=== PATIENT | female | born 1960 | race Caucasian/White ===

== ENCOUNTER → 2016-10-22 | Outpatient (CLI) | payer OTHER ==
[~2016-10-22] MED LIST: ASPI-99 PO; LEVO-86 PO; METO25TA3 PO; PRAV40TA PO; SYNT25TA PO; ULTR50TA PO
[2016-10-22 09:38] LABS: BASOPHIL % 0.6 % (0.0-2.0); EOSINOPHIL # 0.3 TH/MM3 (0-0.4); EOSINOPHIL % 3.9 % (0.0-4.0); HEMO FLAGS DIFF FINAL; LYMPH % 25.6 % (9.0-44.0); MEAN CELL VOLUME 82.1 FL (80.0-100.0); MEAN CORPUSCULAR HEMOGLOBIN 26.5 PG (27.0-34.0); MEAN CORPUSCULAR HGB CONC 32.3 % (32.0-36.0); NEUT % 62.9 % (16.0-70.0); PLATELET COUNT 216 TH/MM3 (150-450); RED BLOOD COUNT 4.99 MIL/MM3 (4.00-5.30); RED CELL DISTRIBUTION WIDTH 14.9 % (11.6-17.2); WHITE BLOOD COUNT 7.9 TH/MM3 (4.0-11.0)
[2016-10-22 10:12] LABS: ALT (GPT) 21 U/L (10-53); ANION GAP 5 MEQ/L (5-15); AST (GOT) 15 U/L (15-37); BICARBONATE 30.5 MEQ/L (21.0-32.0); BLOOD UREA NITROGEN 14 MG/DL (7-18); CHLORIDE 105 MEQ/L (98-107); GLOMERULAR FILTRATION RATE 68 ML/MIN (>89); GLUCOSE,FASTING 88 MG/DL (74-99); POTASSIUM 4.5 MEQ/L (3.5-5.1); SODIUM (NA) 140 MEQ/L (136-145)
[2016-10-22 10:22] LABS: ALKALINE PHOSPHATASE 115 U/L (45-117); LDL CHOLESTEROL 91 MG/DL (0-99); TOTAL BILIRUBIN ADULT 0.5 MG/DL (0.2-1.0)
== END ==
LOC: PLAB 07:14
PROVIDERS: ATTEND Family Medicine
DX: E03.8 Other specified hypothyroidism (principal); D50.0 Iron deficiency anemia secondary to blood loss (chronic)
CPT/HCPCS: 80053; 80061; 84443; 85025

== ENCOUNTER 2017-02-22 22:43 | Observation (INO) | payer OTHER ==
[~2017-02-22] VITALS: Ht 167.6 cm; Wt 96.5 kg
[~2017-02-22 22:43] MED LIST changes: -ASPI-99 PO; -LEVO-86 PO; -METO25TA3 PO; -PRAV40TA PO
[2017-02-22 22:46] VITALS: BP 157/68; PULSE 79; RESP 16; TEMP 98; O2SAT 97
[2017-02-22] MEDS ORDERED: LEVO-86 PO (23:27)
--- NOTE | 2017-02-22 23:27 | PD ---
HPI Chief Complaint: Chest Pain Time Seen by Provider: 23:27 Travel History International Travel<30 days: No Contact w/Intl Traveler<30days: No Traveled to known affect area: No History of Present Illness HPI 56-year-old female came to the emergency room with history of left sided chest pain radiating to her axilla at 9 PM while she was sitting and watching television. Since then pain came and went multiple times and finally her decided to bring her to the emergency room. Her is a nurse in this hospital and was concerned about her heart. Currently patient says she is chest pain-free. Patient is not a smoker and has a very strong family history of coronary artery disease. Both her parents and all her siblings have had stents put in. Patient has never had any cardiac workup in the past. She is not on any medications on a daily basis either. Vital signs were stable. No long distance travel, surgery or procedures or any prolonged immobilization. PFSH Past Medical History Narrative Medical List of her past medical, surgical, social and family history was reviewed from the nursing note. Arthritis: No Asthma: No Autoimmune Disease: No Blood Disorders: No Anxiety: No Depression: No Heart Rhythm Problems: No Cancer: No Cardiovascular Problems: No High Cholesterol: No Chemotherapy: No Chest Pain: No Congestive Heart Failure: No COPD: No Cerebrovascular Accident: No Diabetes: No Diminished Hearing: No Endocrine: Yes GERD: No Glaucoma: No Genitourinary: No Headaches: No Hepatitis: No Hiatal Hernia: No Hypertension: No Immune Disorder: No Kidney Stones: No Musculoskeletal: No Neurologic: No Psychiatric: No Reproductive: Yes (HEMORRHAGE AFTER CHILD ) Respiratory: No Migraines: No Myocardial Infarction: No Radiation Therapy: No Renal Failure: No Seizures: No Sickle Cell Disease: No Sleep Apnea: No Thyroid Disease: Yes (HYPOTHYROID) Ulcer: No Tetanus Vaccination: Unknown ?: Not Dilation and Curettage (D&C): Yes Tubal Ligation: Yes Past Surgical History Abdominal Surgery: No AICD: No Appendectomy: No Arteriovenous Shunt: No Cardiac Surgery: No Cholecystectomy: No Ear Surgery: No Endocrine Surgery: No Eye Surgery: No Genitourinary Surgery: No Gynecologic Surgery: Yes (D/C and uterine ablation) Insulin Pump: No Joint Replacement: No Oral Surgery: No Pacemaker: No Thoracic Surgery: No Other Surgery: Yes Social History Alcohol Use: No Tobacco Use: No Substance Use: No Allergies-Medications (Allergen,Severity, Reaction): Coded Allergies: No Known Allergies (Verified , 02/22/17) Comments No known drug allergies. Reported Meds & Prescriptions Reported Meds & Active Scripts Active Reported Synthroid (Levothyroxine Sodium) 137 Mcg Tab 137 Mcg PO DAILY Narrative Medication List of her home medications reviewed from the nursing note. Review of Systems Except as stated in HPI: all other systems reviewed are Neg Physical Exam Narrative GENERAL: Awake, alert, no obvious distress SKIN: Focused skin assessment warm/dry. HEAD: Atraumatic. Normocephalic. EYES: Pupils equal and round. No scleral icterus. No injection or drainage. ENT: No nasal bleeding or discharge. Mucous membranes pink and moist. NECK: Trachea midline. No JVD. CARDIOVASCULAR: Regular rate and rhythm. No murmur appreciated. RESPIRATORY: No accessory muscle use. Clear to auscultation. Breath sounds equal bilaterally. GASTROINTESTINAL: Abdomen soft, non-tender, nondistended. Hepatic and splenic margins not palpable. MUSCULOSKELETAL: No obvious deformities. No clubbing. No cyanosis. No edema. NEUROLOGICAL: Awake and alert. No obvious cranial nerve deficits. Motor grossly within normal limits. Normal speech. PSYCHIATRIC: Appropriate mood and affect; insight and judgment normal. Data Data Last Documented VS Orders Electrocardiogram (02/22/17 23:27) Basic Metabolic Panel (Bmp) (02/22/17 23:27) Ckmb (Isoenzyme) Profile (02/22/17 23:27) Complete Blood Count With Diff (02/22/17 23:27) Magnesium (Mg) (02/22/17 23:27) Prothrombin Time / Inr (Pt) (02/22/17 23:27) Act Partial Throm Time (Ptt) (02/22/17 23:27) Troponin I (02/22/17 23:27) Chest, Single Ap (02/22/17 23:27) Ecg Monitoring (02/22/17 23:27) Bilateral Bp Monitoring (02/22/17 23:27) Iv Access Insert/Monitor (02/22/17 23:27) Oximetry (02/22/17 23:27) Oxygen Administration (02/22/17 23:27) Sodium Chloride 0.9% Flush (Ns Flush) (02/22/17 23:30) Aspirin Chew (Aspirin Chew) (02/23/17 09:00) Aspirin Chew (Aspirin Chew) (02/23/17 00:00) Admit Order (Ed Use Only) (02/23/17 01:21) Labs Laboratory Tests Test 02/22/17 23:40 White Blood Count 13.5 TH/MM3 Red Blood Count 4.78 MIL/MM3 Hemoglobin 12.7 GM/DL Hematocrit 38.1 % Mean Corpuscular Volume 79.7 FL Mean Corpuscular Hemoglobin 26.5 PG Mean Corpuscular Hemoglobin 33.2 % Concent Red Cell Distribution Width 15.6 % Platelet Count 225 TH/MM3 Mean Platelet Volume 8.5 FL Neutrophils (%) (Auto) 60.5 % Lymphocytes (%) (Auto) 28.7 % Monocytes (%) (Auto) 8.0 % Eosinophils (%) (Auto) 2.2 % Basophils (%) (Auto) 0.6 % Neutrophils # (Auto) 8.2 TH/MM3 Lymphocytes # (Auto) 3.9 TH/MM3 Monocytes # (Auto) 1.1 TH/MM3 Eosinophils # (Auto) 0.3 TH/MM3 Basophils # (Auto) 0.1 TH/MM3 CBC Comment DIFF FINAL Differential Comment Prothrombin Time 10.7 SEC Prothromb Time International 1.0 RATIO Ratio Activated Partial 29.0 SEC Thromboplast Time Sodium Level 140 MEQ/L Potassium Level 3.8 MEQ/L Chloride Level 104 MEQ/L Carbon Dioxide Level 30.7 MEQ/L Anion Gap 5 MEQ/L Blood Urea Nitrogen 24 MG/DL Creatinine 0.92 MG/DL Estimat Glomerular Filtration 64 ML/MIN Rate Random Glucose 102 MG/DL Calcium Level 8.5 MG/DL Magnesium Level 2.5 MG/DL Total Creatine Kinase 39 U/L Troponin I LESS THAN 0.02 NG/ML MDM Medical Decision Making Medical Screen Exam Complete: Yes Emergency Medical Condition: Yes Medical Record Reviewed: Yes Interpretation(s) Twelve-lead EKG was reviewed by me. Normal sinus rhythm, normal axis, inverted anterior lateral T waves. Heart rate of 76 bpm. Differential Diagnosis Coronary artery disease, ACS, non-STEMI Narrative Course 1 AM patient has some leukocytosis but rest of the blood work is within normal limits. Chest x-ray shows cardiomegaly. Patient has significant dress factor in the form of family history. Also the EKG shows the T wave inversions which does not have any comparison EKG. I would prefer to admit her to the medical service. Awaiting for the hospitalist call back. Procedures EKG Prior to Arrival: No Diagnosis Primary Impression: Chest pain Qualified Code: R07.9 - Chest pain, unspecified type Additional Impression: Abnormal EKG Admitting Information Admitting Physician Requests: Observation Scripts Metoprolol Tartrate 25 Mg Tab12.5 Mg PO Q12HR #60 TAB Ref 0 Prov:Deyvi Ramey MD 02/24/[address] (Adult Aspirin EC Low Strength)81 Mg Tabec81 Mg PO DAILY #30 TAB Ref 0 Prov:Deyvi Ramey MD 02/24/17 Jake Wells MD Feb 22, 2017 23:27 Jake Wells MD Feb 22, 2017 23:27
[2017-02-22 23:29] VITALS: PULSE 74; RESP 16; O2SAT 96
[2017-02-22] MEDS ORDERED: SODIUM CHLORIDE 0.9% FLUSH 10 ML FLUSH IVF PRN (23:30)
--- NOTE | 2017-02-22 23:51 | RADRPT ---
EXAM DATE/TIME: 02/22/2017 23:41 [facility] COMPARISON: No previous studies available for comparison. INDICATIONS : Chest pain MEDICAL HISTORY : None. SURGICAL HISTORY : None. ENCOUNTER: Initial ACUITY: 1 day PAIN SCORE: 2/10 LOCATION: Bilateral chest FINDINGS: A single view of the chest demonstrates the lungs to be symmetrically aerated without evidence of mas s, infiltrate or effusion. Cardiomegaly. The cardiomediastinal contours are unremarkable. Osseous s tructures are intact. CONCLUSION: Cardiomegaly. Aries Ayala MD on February 22, 2017 at 23:48 Board Certified Radiologist. This report was verified electronically.
[2017-02-23] VITALS (16 sets, daily range): BP systolic 102–139; BP diastolic 54–81; PULSE 61–80; RESP 18–20; TEMP 96.8–98.3; O2SAT 96–97
[2017-02-23] MEDS ORDERED: ASPIRIN 81 MG CHEW TAB CHEW ONE
[2017-02-23 00:14] LABS: PROTHROMBIN TIME - PATIENT 10.7 SEC (9.8-11.6)
[2017-02-23 00:17] LABS: AUTOMATED NEUTROPHIL # 8.2 TH/MM3 (1.8-7.7); BASOPHIL # 0.1 TH/MM3 (0-0.2); BASOPHIL % 0.6 % (0.0-2.0); EOSINOPHIL # 0.3 TH/MM3 (0-0.4); EOSINOPHIL % 2.2 % (0.0-4.0); HEMATOCRIT 38.1 % (35.0-46.0); HEMO FLAGS DIFF FINAL; LYMPH % 28.7 % (9.0-44.0); LYMPHOCYTE # 3.9 TH/MM3 (1.0-4.8); MEAN CELL VOLUME 79.7 FL (80.0-100.0); MEAN CORPUSCULAR HEMOGLOBIN 26.5 PG (27.0-34.0); MEAN CORPUSCULAR HGB CONC 33.2 % (32.0-36.0); NEUT % 60.5 % (16.0-70.0); PLATELET COUNT 225 TH/MM3 (150-450); RED BLOOD COUNT 4.78 MIL/MM3 (4.00-5.30); RED CELL DISTRIBUTION WIDTH 15.6 % (11.6-17.2); WHITE BLOOD COUNT 13.5 TH/MM3 (4.0-11.0)
[2017-02-23 00:21] LABS: ANION GAP 5 MEQ/L (5-15); BICARBONATE 30.7 MEQ/L (21.0-32.0); BLOOD UREA NITROGEN 24 MG/DL (7-18); CHLORIDE 104 MEQ/L (98-107); GLOMERULAR FILTRATION RATE 64 ML/MIN (>89); MAGNESIUM 2.5 MG/DL (1.5-2.5); POTASSIUM 3.8 MEQ/L (3.5-5.1); SODIUM (NA) 140 MEQ/L (136-145)
[2017-02-23 00:30] LABS: CREATINE KINASE 39 U/L (26-192)
[2017-02-23] MEDS ORDERED: SENNOSIDES 8.6 MG TAB PO PRN (01:30)
[2017-02-23] MEDS ORDERED: BISACODYL 10 MG SUPP RECTAL PRN (01:30)
[2017-02-23] MEDS ORDERED: ENOXAPARIN SODIUM 100 MG/ML SYRINGE SQ ONE (01:30)
[2017-02-23] MEDS ORDERED: MAGNESIUM HYDROXIDE SUSP 30 ML CUP PO PRN (01:30)
[2017-02-23] MEDS ORDERED: LACTULOSE SYRUP 20 GM/30 ML CUP PO PRN (01:30)
[2017-02-23] MEDS ORDERED: ONDANSETRON HCL 4 MG/2 ML VIAL IVP PRN (01:30)
[2017-02-23] MEDS ORDERED: MORPHINE SULFATE 4 MG/ML INJ IV PRN (01:30)
[2017-02-23] MEDS ORDERED: NITROGLYCERIN 2% OINT 1 GM PACKET TOPICAL PRN (01:30)
[2017-02-23] MEDS ORDERED: SODIUM CHLORIDE 0.9% FLUSH 10 ML FLUSH IV FLUSH PRN (01:30)
[2017-02-23] MEDS ORDERED: ACETAMINOPHEN/HYDROcodone 325 MG/5 MG TAB PO PRN (01:30)
--- NOTE | 2017-02-23 02:40 | HHI.HP ---
[facility] Service [facility] Primary Care Physician Deann Frias MD Admission Diagnosis chest pain, EKG changes Diagnoses: (1) Chest pain Diagnosis: Principal (2) Abnormal EKG Diagnosis: Principal (3) Leukocytosis Diagnosis: Principal (4) Dehydration Diagnosis: Principal (5) HTN (hypertension) Diagnosis: Principal Travel History International Travel<30 Days: No Contact w/Intl Traveler <30 Da: No Traveled to Known Affected Are: No History of Present Illness This is a 56-year-old female with a PMH of Hypothyroidism presented to the ER secondary to complaints of chest pain starting earlier this evening. Per patient, she's had intermittent episodes of chest pain for the last 1-2 months, usually at rest, associated w/ SOB which she attributed to "heartburn". Tonight , states the pain was much more severe than usual w/ radiation to left shoulder/ axilla. is [facility] RN and urged pt to come in for eval. No h/o CAD, however has strong family history of CAD in siblings aged 50-60yrs. on arrival , BP 157/68, HR 79, O2 sat 97% on RA, Afebrile. WBC 13.5. Chemistry essentially unremarkable except for GFR 64. Troponin negative. EKG w/ T-wave inversions lateral leads, no previous EKG for comparison. CXR with cardiomegaly , no other findings noted. Review of Systems Except as stated in HPI: all other systems reviewed are Neg ROS: 14 point review of systems otherwise negative. Past Family Social History Past Medical History PMH: Hypothyroidism Past Surgical History PAST SURGICAL HISTORY: Uterine Ablation Allergies: Coded Allergies: No Known Allergies (Verified , 02/22/17) Family History PAST FAMILY HISTORY: Reviewed, strong family history of CAD in multiple siblings. Social History PAST SOCIAL HISTORY: Negative for alcohol, tobacco or drugs. Physical Exam Vital Signs Vital Signs Date Time Temp Pulse Resp B/P Pulse Ox O2 Delivery O2 Flow Rate FiO2 02/22/17 23:29 97 Room Air 02/22/17 23:29 74 16 96 Room Air 02/22/17 22:46 98.0 79 16 157/68 97 Room Air Physical Exam PE: GENERAL: Extremely pleasant middle-aged white female in no acute distress. Family at bedside. HEENT: PERRLA, EOMI. No scleral icterus or conjunctival pallor. No lid lag or facial droop. CARDIOVASCULAR: Regular rate and rhythm. No obvious murmurs to auscultation. No chest tenderness to palpation. RESPIRATORY: No obvious rhonchi or wheezing. Clear to auscultation. Breath sounds equal bilaterally. GASTROINTESTINAL: Abdomen soft, non-tender, nondistended. BS normal. MUSCULOSKELETAL: Extremities without clubbing, cyanosis, or edema. No obvious deformities. NEUROLOGICAL: Awake, alert and oriented x4. No focal neurologic deficits. Moving both upper and lower extremities spontaneously. Laboratory Laboratory Tests Test 02/22/17 23:40 White Blood Count 13.5 Red Blood Count 4.78 Hemoglobin 12.7 Hematocrit 38.1 Mean Corpuscular Volume 79.7 Mean Corpuscular Hemoglobin 26.5 Mean Corpuscular Hemoglobin 33.2 Concent Red Cell Distribution Width 15.6 Platelet Count 225 Mean Platelet Volume 8.5 Neutrophils (%) (Auto) 60.5 Lymphocytes (%) (Auto) 28.7 Monocytes (%) (Auto) 8.0 Eosinophils (%) (Auto) 2.2 Basophils (%) (Auto) 0.6 Neutrophils # (Auto) 8.2 Lymphocytes # (Auto) 3.9 Monocytes # (Auto) 1.1 Eosinophils # (Auto) 0.3 Basophils # (Auto) 0.1 CBC Comment DIFF FINAL Differential Comment Prothrombin Time 10.7 Prothromb Time International 1.0 Ratio Activated Partial 29.0 Thromboplast Time Sodium Level 140 Potassium Level 3.8 Chloride Level 104 Carbon Dioxide Level 30.7 Anion Gap 5 Blood Urea Nitrogen 24 Creatinine 0.92 Estimat Glomerular Filtration 64 Rate Random Glucose 102 Calcium Level 8.5 Magnesium Level 2.5 Total Creatine Kinase 39 Troponin I LESS THAN 0.02 Result Diagram: 02/22/17233902/22/172339 Assessment and Plan Problem List: (1) Chest pain ICD Code: R07.9 Status: Acute (2) Abnormal EKG ICD Code: R94.31 Status: Acute (3) Leukocytosis ICD Code: D72.829 Status: Acute (4) Dehydration ICD Code: E86.0 Status: Acute (5) HTN (hypertension) ICD Code: I10 Status: Acute Assessment and Plan A/P: 1. Chest Pain: R/o ACS. C/o chest pain for approx 1-2 months, mostly at rest , tonight w/ severe left-sided chest pain w/ radiation to left shoulder/axilla. Trop negative, EKG w/ T-wave inversions lateral leads, unclear if new or old. CXR w/ cardiomegaly, no other findings, images reviewed by me. Concern for ACS w/ strong family history of CAD. Admit for Observation, Telemetry, Lovenox , B-Margaret, ASA, Statin, check serial cardiac enzymes, lipid profile, TSH and Hgb A1c. Consult Cardiology for further eval in light of significant family history and intermittent chest pain w/ above EKG changes. NTG/Morphine. 2. Abnormal EKG: EKG w/ T-wave inversions lateral leads, no previous EKG for comparison, denies h/o abnormal EKG. Will check serial EKG w/ troponin. 3. Leukocytosis: WBC 13, completed steroid therapy 2 days ago for ankle inflammation, likely related to steroid therapy. Will recheck labs in am. 4. HTN: BP 150's on arrival, start B-Margaret, monitor BP. 5. DVT Prophylaxis: Lovenox 6. Social work for d/c planning as needed. 7. Case discussed w/ ER physician at length. Problem Qualifiers (1) Chest pain: Qualified Code: R07.9 - Chest pain, unspecified type Birgit Campbell MD Feb 23, 2017 02:40
[2017-02-23] MEDS: SODIUM CHLOR 0.9% 1000 ML INJ 1,000 ML IV SCH ×3 (03:19→22:30)
[2017-02-23] MEDS: LEVOTHYROXINE SODIUM 25 MCG TAB PO SCH (05:47)
[2017-02-23] MEDS: LEVOTHYROXINE SODIUM 112 MCG TAB PO SCH (05:47)
[2017-02-23] MEDS ORDERED: ASPIRIN 81 MG CHEW TAB CHEW SCH (09:00)
[2017-02-23] MEDS: DOCUSATE SODIUM 50 MG/SENNA 8.6 MG TAB PO SCH ×2 (09:29→20:40)
[2017-02-23] MEDS: SODIUM CHLORIDE 0.9% FLUSH 10 ML FLUSH IV FLUSH SCH ×2 (09:29→20:41)
[2017-02-23] MEDS: PRAVASTATIN SOD 40 MG TAB PO SCH (09:32)
[2017-02-23] MEDS: ASPIRIN EC 81 MG TABEC PO SCH (09:32)
[2017-02-23] MEDS: METOPROLOL TARTRATE 25 MG TAB PO SCH ×2 (10:14→20:41)
--- NOTE | 2017-02-23 11:32 | HHI.PR ---
Subjective Remarks Follow up for chest pain. The patient reports intermittent episodes of mild chest pain located at the left anterior chest with radiation to the axilla this morning, denies associated shortness of breath, nausea/vomiting, or diaphoresis. She is concerned as her sister had stents placed in her 50s and her brother had heart disease in late 40s with CABG in his 50s. The patient does report that she tries to exercise for 30minutes, denies any specific chest pains with exertion, however usually she gets winded after only 20 minutes and has to sit down to rest and catch her breath. Objective Vitals Vital Signs Date Time Temp Pulse Resp B/P Pulse Ox O2 Delivery O2 Flow Rate FiO2 02/23/17 08:36 97.8 80 20 113/54 96 02/23/17 08:34 98.2 70 18 111/66 96 02/23/17 03:02 98.0 69 18 117/58 96 02/22/17 23:29 97 Room Air 02/22/17 23:29 74 16 96 Room Air 02/22/17 22:46 98.0 79 16 157/68 97 Room Air I/O 02/22/17 02/22/17 02/22/17 02/23/17 02/23/17 02/23/17 07:00 15:00 23:00 07:00 15:00 23:00 Intake Total 247 ml Balance 247 ml Intake IV Total 247 ml Result Diagram: 02/22/17 2340 02/22/17 2340 Imaging Last Impressions Chest X-Ray 02/22/17 2327 Signed Impressions: Service Date/Time: Wednesday, February 22, 2017 23:41 - CONCLUSION: Cardiomegaly. Aries Ayala MD Objective Remarks GENERAL: Well-nourished, well-developed middle aged female patient in [facility]. SKIN: Warm and dry. No rash. HEENT: Normocephalic. Atraumatic. Pupils equal and round. Mucous membranes pink and moist. NECK: Supple. Trachea midline. CARDIOVASCULAR: Regular rate and rhythm. S1, S2 noted. No murmur appreciated. RESPIRATORY: No accessory muscle use. Clear to auscultation. Breath sounds equal bilaterally. GASTROINTESTINAL: Abdomen soft, non-tender, nondistended. Normoactive bowel sounds x4. MUSCULOSKELETAL: No obvious deformities. Extremities without clubbing, cyanosis , or edema. NEUROLOGICAL: Awake and alert. No obvious cranial nerve deficits. Motor grossly within normal limits. Normal speech. PSYCHIATRIC: Appropriate mood and affect; insight and judgment normal. Medications and IVs Current Medications Medications (Trade) Dose Ordered Sig/Chitra Route Start Time Stop Time Status Last Admin (NS Flush) 2 ml UNSCH PRN IVF 02/22/17 23:30 (NS Flush) 2 ml UNSCH PRN IV FLUSH 02/23/17 01:30 (NS Flush) 2 ml BID IV FLUSH 02/23/17 09:00 (Zofran Inj) 4 mg Q6H PRN IVP 02/23/17 01:30 (Tylenol) 650 mg Q6H PRN PO 02/23/17 01:30 (Homer 5-325 Mg) 1 tab Q4H PRN PO 02/23/17 01:30 (Morphine Inj) 2 mg Q3H PRN IV 02/23/17 01:30 (Nancy-Colace) 1 tab BID PO 02/23/17 09:00 (Milk Of Magnesia Liq) 30 ml Q12H PRN PO 02/23/17 01:30 (Senokot) 17.2 mg Q12H PRN PO 02/23/17 01:30 (Dulcolax Supp) 10 mg DAILY PRN RECTAL 02/23/17 01:30 (Lactulose Liq) 30 ml DAILY PRN PO 02/23/17 01:30 (Nitroglycerin 2% Oint) 0.5 inch Q6HR PRN TOPICAL 02/23/17 01:30 02/23/17 11:31 (Ecotrin Ec) 81 mg DAILY PO 02/23/17 09:00 02/23/17 09:32 (Pravachol) 40 mg DAILY PO 02/23/17 09:00 02/23/17 09:32 (Synthroid) 112 mcg DAILY@07 PO 02/23/17 07:00 02/23/17 05:47 (Lopressor) 12.5 mg Q12HR PO 02/23/17 09:00 02/23/17 10:14 Levothyroxine Sodium 25 mcg 25 mcg DAILY@07 PO 02/23/17 07:00 02/23/17 05:47 (NS 1000 ml Inj) 1,000 ml @ 100 mls/hr Q10H IV 02/23/17 02:30 02/23/17 03:19 (Pneumovax-23 Inj) 25 mcg ONCE ONCE IM 02/24/17 09:00 02/24/17 09:01 A/P Problem List: (1) Chest pain ICD Code: R07.9 Status: Acute (2) Abnormal EKG ICD Code: R94.31 Status: Acute (3) Leukocytosis ICD Code: D72.829 Status: Acute (4) Dehydration ICD Code: E86.0 Status: Acute (5) HTN (hypertension) ICD Code: I10 Status: Acute Assessment and Plan 56-year-old female with a PMH of Hypothyroidism presented to the ER secondary to complaints of chest pain starting earlier this evening. Unstable Angina: With Abnormal EKG. C/o chest pain for approx 1-2 months, mostly at rest, now w/ severe left-sided chest pain w/ radiation to left shoulder/axilla. Concern for ACS w/ strong family history of CAD. CXR w/ cardiomegaly, no other findings, images reviewed by me. -First 2 sets of troponins negative, checking 3rd set. -EKG reviewed, w/ T-wave inversions lateral leads, unclear if new or old. -Monitor on telemetry -Continue full strength Lovenox, B-Margaret, ASA, Statin, NTG/Morphine. -Check lipid profile, TSH and Hgb A1c. -Consulted Cardiology, discussed with Dr. Sanon, transfer to [facility] for close monitoring, will proceed with Nuclear Stress Test Leukocytosis: WBC 13K, completed steroid therapy 2 days ago for ankle inflammation, likely related to steroid therapy. -Repeat labs today pending HTN: BP 150's on arrival. -start B-Margaret -monitor BP, adjust antihypertensives as needed Hypothyroidism: chronic -check TSH -continue patient's Synthroid DVT Prophylaxis: Lovenox Discharge Planning Transfer to [facility] per Dr. Sanon. Problem Qualifiers (1) Chest pain: Qualified Code: R07.9 - Chest pain, unspecified type Bing Mchugh PA-C Feb 23, 2017 11:32
[2017-02-23 11:45] LABS: AUTOMATED NEUTROPHIL # 6.2 TH/MM3 (1.8-7.7); BASOPHIL # 0.1 TH/MM3 (0-0.2); BASOPHIL % 0.6 % (0.0-2.0); EOSINOPHIL # 0.2 TH/MM3 (0-0.4); EOSINOPHIL % 2.5 % (0.0-4.0); HEMATOCRIT 39.8 % (35.0-46.0); HEMO FLAGS DIFF FINAL; LYMPH % 27.6 % (9.0-44.0); LYMPHOCYTE # 2.7 TH/MM3 (1.0-4.8); MEAN CELL VOLUME 80.6 FL (80.0-100.0); MEAN CORPUSCULAR HEMOGLOBIN 26.4 PG (27.0-34.0); MEAN CORPUSCULAR HGB CONC 32.8 % (32.0-36.0); MONO % 6.4 % (0.0-8.0); NEUT % 62.9 % (16.0-70.0); PLATELET COUNT 217 TH/MM3 (150-450); RED BLOOD COUNT 4.95 MIL/MM3 (4.00-5.30); RED CELL DISTRIBUTION WIDTH 15.6 % (11.6-17.2); WHITE BLOOD COUNT 9.8 TH/MM3 (4.0-11.0)
--- NOTE | 2017-02-23 11:53 | EKG ---
Date Performed: 02/23/2017 Time Performed: 01:55:12 PTAGE: 56 years EKG: Sinus rhythm MODERATE T-WAVE ABNORMALITY, CONSIDER ANTEROLATERAL ISCHEMIA Since previous tracing, no significant change noted ABNORMAL ECG PREVIOUS TRACING : 02/22/2017 2305 DOCTOR: Dominic Crow Interpretating Date/Time 02/23/2017 11:52:44
--- NOTE | 2017-02-23 11:53 | EKG ---
Date Performed: 02/23/2017 Time Performed: 04:04:56 PTAGE: 56 years EKG: Sinus rhythm ST DEVIATION AND MODERATE T-WAVE ABNORMALITY, CONSIDER ANTEROLATERAL ISCHEMIA Since previous tracing , no significant change noted ABNORMAL ECG PREVIOUS TRACING : 02/23/2017 01.55 DOCTOR: Dominic Crow Interpretating Date/Time 02/23/2017 11:52:07
--- NOTE | 2017-02-23 11:54 | EKG ---
Date Performed: 02/22/2017 Time Performed: 23:01:05 PTAGE: 56 years EKG: Sinus rhythm MODERATE T-WAVE ABNORMALITY, CONSIDER ANTEROLATERAL ISCHEMIA ABNORMAL ECG NO PREVIOUS TRACING DOCTOR: Dominic Crow Interpretating Date/Time 02/23/2017 11:52:55
[2017-02-23 12:03] LABS: ALT (GPT) 17 U/L (10-53); ANION GAP 7 MEQ/L (5-15); AST (GOT) 8 U/L (15-37); BICARBONATE 27.4 MEQ/L (21.0-32.0); BLOOD UREA NITROGEN 16 MG/DL (7-18); CHLORIDE 107 MEQ/L (98-107); GLOMERULAR FILTRATION RATE 89 ML/MIN (>89); POTASSIUM 3.9 MEQ/L (3.5-5.1); SODIUM (NA) 141 MEQ/L (136-145)
[2017-02-23 12:12] LABS: ALKALINE PHOSPHATASE 108 U/L (45-117); LDL CHOLESTEROL 74 MG/DL (0-99); TOTAL BILIRUBIN ADULT 0.6 MG/DL (0.2-1.0)
--- NOTE | 2017-02-23 13:50 | MB ---
cc: STALIN CALLEJAS MD DATE OF CONSULTATION: 02/23/2017 REASON FOR CONSULTATION: Chest pain. HISTORY OF PRESENT ILLNESS The patient is a very pleasant 56-year-old woman with a history of hypothyroidism but no cardiac history. She does have a family history of premature coronary disease. Yesterday the patient had about 30-40 minutes of 9/10, central / left upper chest discomfort. She describes it as a sharp pressure not exacerbated or relieved by any movement, inspiration or activity. Her is an ICU nurse and quickly directed her to the emergency department by that point she was chest pain free. She was given Lovenox and has been chest pain free until the last 20-30 minutes where she is started getting the pain back again she describes it currently as a 4/10. Despite this she is asking to be discharged home as soon as possible. Other than his chest discomfort. She denies shortness of breath, lightheadedness, dizziness. Or syncope. PAST MEDICAL HISTORY As above. CURRENT MEDICATIONS 1. Aspirin milligrams daily. 2. Pravachol 40 mg daily. 3. Lopressor 12.5 mg q. 12. 4. Synthroid. 5. She received one dose of therapeutic, Lovenox at 01:30 a.m.. ALLERGIES NO KNOWN DRUG ALLERGIES. PHYSICAL EXAMINATION VITAL SIGNS: Afebrile, pulse 80, respiratory 20, BP 115/54 satting 96 on room air. IN GENERAL: Very pleasant woman in no distress. NECK: No JVD. LUNGS: Clear auscultation bilaterally. CARDIOVASCULAR SYSTEM: Regular rate rhythm. No murmurs appreciated. ABDOMEN: benign. EXTREMITIES: No edema. LABORATORY DATA White count 13.5, hematocrit 38.1, platelets 225. Sodium 140, 1002.8504, bicarb 30.7, BUN 5, creatinine 24, glucose 102, Cardiac enzymes are negative x2. Chest x-ray Shows cardiomegaly. EKG shows sinus rhythm with lateral and anterolateral T-wave changes consistent with ischemia. IMPRESSION Chest discomfort. The patient has reasonable sounding chest discomfort and abnormal EKG. I will attempt to make her chest pain free using nitroglycerin and morphine as necessary if we can successfully make her chest pain free we will have her undergo a nuclear stress test given her cardiac enzymes are normal. Should she not to become chest pain free or her third set becomes positive, she would need to undergo a cardiac catheterization more urgently. Further recommendations based on her clinical course. Thank you for opportunity to participate in this patients care. MD ROEL Orantes/ivonne /11:33 AM /1:45 PM
[2017-02-23] MEDS ORDERED: REGADENOSON INJ 0.4 MG/5 ML SYR ONE (18:05)
--- NOTE | 2017-02-23 19:52 | RADRPT ---
EXAM DATE/TIME: 02/23/2017 17:59 [facility] COMPARISON: No previous studies available for comparison. INDICATIONS : Left sided chest pain and cardiomegaly.. Angina. DOSE: 25.8 mCi Tc99m Myoview at stress. 8.1 mCi Tc99m Myoview at rest. 0.4 mg Lexiscan STRESS SYMPTOMS: Short of breath and nausea. EJECTION FRACTION: 67% MEDICAL HISTORY : Hypothyroidism. SURGICAL HISTORY : Tubal ligation. ENCOUNTER: Initial ACUITY: 1 day PAIN SCALE: 2/10 LOCATION: Left chest TECHNIQUE: The patient underwent pharmacologic stress with infusion of prescribed dose. Continuous ECG tracing was monitored during stress. Gated SPECT imaging was performed after stress and conventional SPECT i maging was performed at rest. The examination was performed on a SPECT/CT scanner, both attenuation and non-corrected datasets were reviewed. FINDINGS: The gated cine loop images demonstrate no focal wall motion abnormality. Left ventricular ejection f raction is calculated at 67%. The cardiac SPECT stress and rest images demonstrate fixed defect involving the cardiac apex suggesti ng LAD infarct. No reversible defects are noted to suggest ischemia. CONCLUSION: 1. Fixed defect involving the cardiac apex suggesting LAD infarct. Clinical correlation is recommen ded. 2. No reversible defects to suggest ischemia. 3. No focal wall motion abnormality. 4. Left ventricular ejection fraction is calculated at 67%. RISK CATEGORY: Low risk (less than 1% annual mortality rate) Kirt Grady MD on February 23, 2017 at 19:41 Board Certified Radiologist. This report was verified electronically.
[2017-02-23] MEDS: ACETAMINOPHEN 325 MG TAB PO PRN (20:41)
[2017-02-24] VITALS (13 sets, daily range): BP systolic 109–115; BP diastolic 63–72; PULSE 54–80; RESP 20; TEMP 97.8–98.4; O2SAT 96–98
[2017-02-24] MEDS ORDERED: ENOXAPARIN SODIUM 100 MG/ML SYRINGE SQ SCH (02:00)
[2017-02-24] MEDS: LEVOTHYROXINE SODIUM 112 MCG TAB PO SCH (07:15)
[2017-02-24] MEDS: LEVOTHYROXINE SODIUM 25 MCG TAB PO SCH (07:15)
[2017-02-24] MEDS: SODIUM CHLOR 0.9% 1000 ML INJ 1,000 ML IV SCH (08:30)
[2017-02-24] MEDS: SODIUM CHLORIDE 0.9% FLUSH 10 ML FLUSH IV FLUSH SCH (08:54)
[2017-02-24] MEDS: METOPROLOL TARTRATE 25 MG TAB PO SCH (08:58)
[2017-02-24] MEDS: DOCUSATE SODIUM 50 MG/SENNA 8.6 MG TAB PO SCH (08:58)
[2017-02-24] MEDS: ASPIRIN EC 81 MG TABEC PO SCH (08:58)
[2017-02-24] MEDS: PRAVASTATIN SOD 40 MG TAB PO SCH (08:59)
[2017-02-24] MEDS ORDERED: PNEUMOCOCCAL POLYVALENT INJ 25 MCG/0.5 ML SYR IM ONE (09:00)
[2017-02-24] MEDS: ACETAMINOPHEN 325 MG TAB PO PRN (09:53)
--- NOTE | 2017-02-24 10:23 | HHI.PR ---
Subjective Remarks This is a pleasant 56 y/o Female with Hypothyroidism, who came to ER with Chest pain, complaint of intermittent episodes of chest pain for the last 1-2 months, usually at rest, associated w/ SOB which she attributed to "heartburn". Tonight, states the pain was much more severe than usual w/ radiation to left shoulder/axilla. Chemistry essentially unremarkable except for GFR 64. Troponin negative. EKG w/ T-wave inversions lateral leads, no previous EKG for comparison. CXR with cardiomegaly, status post Stress test. 02/24: seen in her bedroom, no nausea, vomit or diarrhea, her by her side , as per prescription benefit specialist doctor Fab valderrama to discharge Home after non ischemic Nuclear stress test. No chest pain. follow in his office in one to two weeks. Objective Vital Signs Date Time Temp Pulse Resp B/P Pulse Ox O2 Delivery O2 Flow Rate FiO2 02/24/17 06:00 70 02/24/17 05:00 56 02/24/17 04:00 60 02/24/17 03:01 98.4 54 20 115/72 98 02/24/17 02:57 60 02/24/17 02:00 60 02/24/17 01:00 66 02/24/17 00:00 58 02/23/17 23:35 98.1 72 20 102/62 97 02/23/17 23:00 63 02/23/17 22:00 62 02/23/17 21:45 16 02/23/17 21:00 68 02/23/17 20:00 76 02/23/17 19:35 98.0 61 20 119/81 97 02/23/17 19:00 78 02/23/17 16:05 97.9 68 20 111/63 96 02/23/17 15:52 98.2 68 20 111/73 96 02/23/17 15:30 98.3 66 18 139/81 97 02/23/17 15:00 68 02/23/17 12:26 96.8 61 20 113/60 96 I/O 02/23/17 02/23/17 02/23/17 02/24/17 02/24/17 02/24/17 07:00 15:00 23:00 07:00 15:00 23:00 Intake Total 247 ml 480 ml Balance 247 ml 480 ml Intake Oral 480 ml IV Total 247 ml # Voids 6 Result Diagram: 02/23/17 1120 02/23/17 1120 Imaging Last Impressions Myocardial Perfusion Scan Nuc Med 02/23/17 0000 Signed Impressions: Service Date/Time: Thursday, February 23, 2017 17:59 - CONCLUSION: 1. Fixed defect involving the cardiac apex suggesting LAD infarct. Clinical correlation is recommended. 2. No reversible defects to suggest ischemia. 3. No focal wall motion abnormality. 4. Left ventricular ejection fraction is calculated at 67%%. RISK CATEGORY: Low risk (less than 1%% annual mortality rate) Kirt Grady MD Chest X-Ray 02/22/17 [id number] Signed Impressions: Service Date/Time: Wednesday, February 22, 2017 23:41 - CONCLUSION: Cardiomegaly. Aries Ayala MD Procedures Stress Test Other Results Laboratory Tests Test 02/22/17 02/23/17 23:40 11:20 Prothrombin Time 10.7 SEC Prothromb Time International 1.0 RATIO Ratio Activated Partial 29.0 SEC Thromboplast Time Magnesium Level 2.5 MG/DL Total Creatine Kinase 39 U/L White Blood Count 9.8 TH/MM3 Red Blood Count 4.95 MIL/MM3 Hemoglobin 13.1 GM/DL Hematocrit 39.8 % Mean Corpuscular Volume 80.6 FL Mean Corpuscular Hemoglobin 26.4 PG Mean Corpuscular Hemoglobin 32.8 % Concent Red Cell Distribution Width 15.6 % Platelet Count 217 TH/MM3 Mean Platelet Volume 8.0 FL Neutrophils (%) (Auto) 62.9 % Lymphocytes (%) (Auto) 27.6 % Monocytes (%) (Auto) 6.4 % Eosinophils (%) (Auto) 2.5 % Basophils (%) (Auto) 0.6 % Neutrophils # (Auto) 6.2 TH/MM3 Lymphocytes # (Auto) 2.7 TH/MM3 Monocytes # (Auto) 0.6 TH/MM3 Eosinophils # (Auto) 0.2 TH/MM3 Basophils # (Auto) 0.1 TH/MM3 CBC Comment DIFF FINAL Differential Comment Sodium Level 141 MEQ/L Potassium Level 3.9 MEQ/L Chloride Level 107 MEQ/L Carbon Dioxide Level 27.4 MEQ/L Anion Gap 7 MEQ/L Blood Urea Nitrogen 16 MG/DL Creatinine 0.69 MG/DL Estimat Glomerular Filtration 89 ML/MIN Rate Random Glucose 76 MG/DL Calcium Level 8.2 MG/DL Total Bilirubin 0.6 MG/DL Aspartate Amino Transf 8 U/L (AST/SGOT) Alanine Aminotransferase 17 U/L (ALT/SGPT) Alkaline Phosphatase 108 U/L Troponin I LESS THAN 0.02 NG/ML Total Protein 7.4 GM/DL Albumin 3.5 GM/DL Triglycerides Level 142 MG/DL Cholesterol Level 152 MG/DL LDL Cholesterol 74 MG/DL HDL Cholesterol 50.0 MG/DL Cholesterol/HDL Ratio 3.04 RATIO Thyroid Stimulating Hormone 2.140 uIU/ML 3rd Gen Objective Remarks GENERAL: Obese patient, no acute distress. HEENT: PERRLA, EOMI. No scleral icterus or conjunctival pallor. No lid lag or facial droop. CARDIOVASCULAR: Regular rate and rhythm. No obvious murmurs to auscultation. No chest tenderness to palpation. RESPIRATORY: No obvious rhonchi or wheezing. Clear to auscultation. Breath sounds equal bilaterally. GASTROINTESTINAL: Abdomen soft, non-tender, nondistended. BS normal. MUSCULOSKELETAL: Extremities without clubbing, cyanosis, or edema. No obvious deformities. NEUROLOGICAL: Awake, alert and oriented x4. No focal neurologic deficits. Moving both upper and lower extremities spontaneously. Medications and IVs Current Medications Medications (Trade) Dose Ordered Sig/Chitra Route Start Time Stop Time Status Last Admin (NS Flush) 2 ml UNSCH PRN IVF 02/22/17 23:30 (NS Flush) 2 ml UNSCH PRN IV FLUSH 02/23/17 01:30 (NS Flush) 2 ml BID IV FLUSH 02/23/17 09:00 02/23/17 20:41 (Zofran Inj) 4 mg Q6H PRN IVP 02/23/17 01:30 (Tylenol) 650 mg Q6H PRN PO 02/23/17 01:30 02/24/17 09:53 ([place] 5-325 Mg) 1 tab Q4H PRN PO 02/23/17 01:30 (Morphine Inj) 2 mg Q3H PRN IV 02/23/17 01:30 (Nancy-Colace) 1 tab BID PO 02/23/17 09:00 02/24/17 08:58 (Milk Of Magnesia Liq) 30 ml Q12H PRN PO 02/23/17 01:30 (Senokot) 17.2 mg Q12H PRN PO 02/23/17 01:30 (Dulcolax Supp) 10 mg DAILY PRN RECTAL 02/23/17 01:30 (Lactulose Liq) 30 ml DAILY PRN PO 02/23/17 01:30 (Nitroglycerin 2% Oint) 0.5 inch Q6HR PRN TOPICAL 02/23/17 01:30 02/23/17 11:31 (Ecotrin Ec) 81 mg DAILY PO 02/23/17 09:00 02/24/17 08:58 (Pravachol) 40 mg DAILY PO 02/23/17 09:00 02/24/17 08:59 (Synthroid) 112 mcg DAILY@07 PO 02/23/17 07:00 02/24/17 07:15 (Lopressor) 12.5 mg Q12HR PO 02/23/17 09:00 02/24/17 08:58 Levothyroxine Sodium 25 mcg 25 mcg DAILY@07 PO 02/23/17 07:00 02/24/17 07:15 (NS 1000 ml Inj) 1,000 ml @ 100 mls/hr Q10H IV 02/23/17 02:30 02/23/17 22:30 (Lovenox Inj) 100 mg Q12H SQ 02/24/17 02:00 02/24/17 02:22 A/P Assessment and Plan Unstable Angina: With Abnormal EKG. C/o chest pain for approx 1-2 months, mostly at rest, now w/ severe left-sided chest pain w/ radiation to left shoulder/axilla. CXR w/ cardiomegaly. -Cardiac Enzymes negative, EKG reviewed, w/ T-wave inversions lateral leads, unclear if new or old. --Continue Telemetry, continue BB, Lovenox, Statin, NTG/morphine, status post Stress test fixed defect involving the cardiac [place] suggesting LAD infarct status post non Ischemic Nuclear stress test, okay from cardiology to discharge Home and follow in his office in one week. Leukocytosis: No signs of infection. probable related to steroid use. HTN: controlled. Hypothyroidism: continue Hormonal replacement. DVT Prophylaxis: Lovenox Discharge Planning Discharge Home Deyvi Ramey MD Feb 24, 2017 10:23
--- NOTE | 2017-02-24 10:49 | PD.CARD.PN ---
Subjective Subjective Remarks Pt feels well, no further chest pain Objective Medications Administered Medications Medications (Trade) Dose Ordered Sig/Chitra Route PRN Reason Start Time Stop Time Status Last Admin Dose Admin Sodium Chloride (NS Flush) 2 ml BID IV FLUSH 02/23/17 09:00 02/23/17 20:41 Acetaminophen (Tylenol) 650 mg Q6H PRN PO FEVER/PAIN SCALE 1 TO 2 02/23/17 01:30 02/24/17 09:53 Senna/Docusate Sodium (Nancy-Colace) 1 tab BID PO 02/23/17 09:00 02/24/17 08:58 Nitroglycerin (Nitroglycerin 2% Oint) 0.5 inch Q6HR PRN TOPICAL CHEST PAIN 02/23/17 01:30 02/23/17 11:31 Aspirin (Ecotrin Ec) 81 mg DAILY PO 02/23/17 09:00 02/24/17 08:58 Pravastatin Sodium (Pravachol) 40 mg DAILY PO 02/23/17 09:00 02/24/17 08:59 Levothyroxine Sodium (Synthroid) 112 mcg DAILY@07 PO 02/23/17 07:00 02/24/17 07:15 Metoprolol Tartrate (Lopressor) 12.5 mg Q12HR PO 02/23/17 09:00 02/24/17 08:58 Levothyroxine Sodium 25 mcg 25 mcg DAILY@07 PO 02/23/17 07:00 02/24/17 07:15 Sodium Chloride (NS 1000 ml Inj) 1,000 ml @ 100 mls/hr Q10H IV 02/23/17 02:30 02/23/17 22:30 Enoxaparin Sodium (Lovenox Inj) 100 mg Q12H SQ 02/24/17 02:00 02/24/17 02:22 Vital Signs / I&O Vital Signs Date Time Temp Pulse Resp B/P Pulse Ox O2 Delivery O2 Flow Rate FiO2 02/24/17 06:00 70 02/24/17 05:00 56 02/24/17 04:00 60 02/24/17 03:01 98.4 54 20 115/72 98 02/24/17 02:57 60 02/24/17 02:00 60 02/24/17 01:00 66 02/24/17 00:00 58 02/23/17 23:35 98.1 72 20 102/62 97 02/23/17 23:00 63 02/23/17 22:00 62 02/23/17 21:45 16 02/23/17 21:00 68 02/23/17 20:00 76 02/23/17 19:35 98.0 61 20 119/81 97 02/23/17 19:00 78 02/23/17 16:05 97.9 68 20 111/63 96 02/23/17 15:52 98.2 68 20 111/73 96 02/23/17 15:30 98.3 66 18 139/81 97 02/23/17 15:00 68 02/23/17 12:26 96.8 61 20 113/60 96 I/O 02/23/17 02/23/17 02/23/17 02/24/17 02/24/17 02/24/17 07:00 15:00 23:00 07:00 15:00 23:00 Intake Total 247 ml 480 ml Balance 247 ml 480 ml Intake Oral 480 ml IV Total 247 ml # Voids 6 Physical Exam GENERAL: This is a well-nourished, well-developed patient, in no apparent distress. CARDIOVASCULAR: Regular rate and rhythm without murmurs, gallops, or rubs. RESPIRATORY: Clear to auscultation. Breath sounds equal bilaterally. No wheezes , rales, or rhonchi. GASTROINTESTINAL: Abdomen soft, non-tender, nondistended. Normal active bowel sounds MUSCULOSKELETAL: Extremities without clubbing, cyanosis, or edema. NEURO: Alert & Oriented x4 to person, place, time, situation. Moves all ext x4 Laboratory Laboratory Tests Test 02/23/17 11:20 White Blood Count 9.8 TH/MM3 Red Blood Count 4.95 MIL/MM3 Hemoglobin 13.1 GM/DL Hematocrit 39.8 % Mean Corpuscular Volume 80.6 FL Mean Corpuscular Hemoglobin 26.4 PG Mean Corpuscular Hemoglobin 32.8 % Concent Red Cell Distribution Width 15.6 % Platelet Count 217 TH/MM3 Mean Platelet Volume 8.0 FL Neutrophils (%) (Auto) 62.9 % Lymphocytes (%) (Auto) 27.6 % Monocytes (%) (Auto) 6.4 % Eosinophils (%) (Auto) 2.5 % Basophils (%) (Auto) 0.6 % Neutrophils # (Auto) 6.2 TH/MM3 Lymphocytes # (Auto) 2.7 TH/MM3 Monocytes # (Auto) 0.6 TH/MM3 Eosinophils # (Auto) 0.2 TH/MM3 Basophils # (Auto) 0.1 TH/MM3 CBC Comment DIFF FINAL Differential Comment Sodium Level 141 MEQ/L Potassium Level 3.9 MEQ/L Chloride Level 107 MEQ/L Carbon Dioxide Level 27.4 MEQ/L Anion Gap 7 MEQ/L Blood Urea Nitrogen 16 MG/DL Creatinine 0.69 MG/DL Estimat Glomerular Filtration 89 ML/MIN Rate Random Glucose 76 MG/DL Calcium Level 8.2 MG/DL Total Bilirubin 0.6 MG/DL Aspartate Amino Transf 8 U/L (AST/SGOT) Alanine Aminotransferase 17 U/L (ALT/SGPT) Alkaline Phosphatase 108 U/L Troponin I LESS THAN 0.02 NG/ML Total Protein 7.4 GM/DL Albumin 3.5 GM/DL Triglycerides Level 142 MG/DL Cholesterol Level 152 MG/DL LDL Cholesterol 74 MG/DL HDL Cholesterol 50.0 MG/DL Cholesterol/HDL Ratio 3.04 RATIO Thyroid Stimulating Hormone 2.140 uIU/ML 3rd Gen Imaging GENERAL: This is a well-nourished, well-developed patient, in no apparent distress. CARDIOVASCULAR: Regular rate and rhythm without murmurs, gallops, or rubs. RESPIRATORY: Clear to auscultation. Breath sounds equal bilaterally. No wheezes , rales, or rhonchi. GASTROINTESTINAL: Abdomen soft, non-tender, nondistended. Normal active bowel sounds MUSCULOSKELETAL: Extremities without clubbing, cyanosis, or edema. NEURO: Alert & Oriented x4 to person, place, time, situation. Moves all ext x4 Assessment and Plan Problem List: (1) Chest pain Assessment and Plan: now s/p non-ischemic nuc stress, will allow pt to d/c home , she is advised to the ER w/ any further significant chest pain (2) Abnormal EKG Assessment and Plan: as above, continue med mgt; will stop lovenox Assessment and Plan Ok to d/c home from cardiac standpoint, will see her in my office in 1-2 weeks. Problem Qualifiers (1) Chest pain: Qualified Code: R07.9 - Chest pain, unspecified type Agustin Sanon MD Feb 24, 2017 10:49
[2017-02-24] MEDS ORDERED: METO25TA3 PO (11:22)
[2017-02-24] MEDS ORDERED: ASPI-99 PO (11:22)
[2017-02-24] MEDS ORDERED: PRAV40TA PO (11:22)
--- NOTE | 2017-02-24 11:25 | HHI.DS ---
Discharge Summary Admission Date Feb 23, 2017 at 01:24 Discharge Date: Feb 24, 2017 Admitting Diagnosis chest pain, EKG changes (1) Chest pain ICD Code: R07.9 Diagnosis: Principal (2) Abnormal EKG ICD Code: R94.31 Diagnosis: Principal (3) Leukocytosis ICD Code: D72.829 Diagnosis: Principal (4) Dehydration ICD Code: E86.0 Diagnosis: Principal (5) HTN (hypertension) ICD Code: I10 Diagnosis: Principal Procedures Stress test Brief History - From Admission This is a 56-year-old female with a PMH of Hypothyroidism presented to the ER secondary to complaints of chest pain starting earlier this evening. Per patient, she's had intermittent episodes of chest pain for the last 1-2 months, usually at rest, associated w/ SOB which she attributed to "heartburn". Tonight , states the pain was much more severe than usual w/ radiation to left shoulder/ axilla. is [facility] RN and urged pt to come in for eval. No h/o CAD, however has strong family history of CAD in siblings aged 50-60yrs. on arrival , BP 157/68, HR 79, O2 sat 97% on RA, Afebrile. WBC 13.5. Chemistry essentially unremarkable except for GFR 64. Troponin negative. EKG w/ T-wave inversions lateral leads, no previous EKG for comparison. CXR with cardiomegaly , no other findings noted. CBC/BMP: 02/23/17 1120 02/23/17 1120 Significant Findings Laboratory Tests Test 02/22/17 02/23/17 02/23/17 23:40 03:29 11:20 White Blood Count 13.5 TH/MM3 (4.0-11.0) Mean Corpuscular Volume 79.7 FL (80.0-100.0) Mean Corpuscular Hemoglobin 26.5 PG 26.4 PG (27.0-34.0) (27.0-34.0) Neutrophils # (Auto) 8.2 TH/MM3 (1.8-7.7) Monocytes # (Auto) 1.1 TH/MM3 (0-0.9) Blood Urea Nitrogen 24 MG/DL (7-18) Estimat Glomerular Filtration 64 ML/MIN (>89) Rate Troponin I LESS THAN 0.02 LESS THAN 0.02 LESS THAN 0.02 NG/ML NG/ML NG/ML (0.02-0.05) (0.02-0.05) (0.02-0.05) Calcium Level 8.2 MG/DL (8.5-10.1) Aspartate Amino Transf 8 U/L (15-37) (AST/SGOT) Imaging Last Impressions Myocardial Perfusion Scan Nuc Med 02/23/17 0000 Signed Impressions: Service Date/Time: Thursday, February 23, 2017 17:59 - CONCLUSION: 1. Fixed defect involving the cardiac apex suggesting LAD infarct. Clinical correlation is recommended. 2. No reversible defects to suggest ischemia. 3. No focal wall motion abnormality. 4. Left ventricular ejection fraction is calculated at 67%%. RISK CATEGORY: Low risk (less than 1%% annual mortality rate) Kirt Grady MD Chest X-Ray 02/22/17 [id number] Signed Impressions: Service Date/Time: Wednesday, February 22, 2017 23:41 - CONCLUSION: Cardiomegaly. Aries Ayala MD PE at Discharge GENERAL: Obese patient, no acute distress. HEENT: PERRLA, EOMI. No scleral icterus or conjunctival pallor. No lid lag or facial droop. CARDIOVASCULAR: Regular rate and rhythm. No obvious murmurs to auscultation. No chest tenderness to palpation. RESPIRATORY: No obvious rhonchi or wheezing. Clear to auscultation. Breath sounds equal bilaterally. GASTROINTESTINAL: Abdomen soft, non-tender, nondistended. BS normal. MUSCULOSKELETAL: Extremities without clubbing, cyanosis, or edema. No obvious deformities. NEUROLOGICAL: Awake, alert and oriented x4. No focal neurologic deficits. Moving both upper and lower extremities spontaneously. Hospital Course This is a pleasant 56 y/o Female with Hypothyroidism, who came to ER with Chest pain, complaint of intermittent episodes of chest pain for the last 1-2 months, usually at rest, associated w/ SOB which she attributed to "heartburn". Tonight, states the pain was much more severe than usual w/ radiation to left shoulder/axilla. Chemistry essentially unremarkable except for GFR 64. Troponin negative. EKG w/ T-wave inversions lateral leads, no previous EKG for comparison. CXR with cardiomegaly, status post Stress test. 02/24: seen in her bedroom, no nausea, vomit or diarrhea, her by her side , as per workers compensation specialist doctor Fab okay to discharge Home after non ischemic Nuclear stress test. No chest pain. follow in his office in one to two weeks. Assessment and Plan Unstable Angina: With Abnormal EKG. C/o chest pain for approx 1-2 months, mostly at rest, now w/ severe left-sided chest pain w/ radiation to left shoulder/axilla. CXR w/ cardiomegaly. -Cardiac Enzymes negative, EKG reviewed, w/ T-wave inversions lateral leads, unclear if new or old. --Continue Telemetry, continue BB, Lovenox, Statin, NTG/morphine, status post Stress test fixed defect involving the cardiac [place] suggesting LAD infarct status post non Ischemic Nuclear stress test, okay from cardiology to discharge Home and follow in his office in one week. at this time will discharge on Beta blockers and Aspirin Leukocytosis: No signs of infection. probable related to steroid use. HTN: controlled. Hypothyroidism: continue Hormonal replacement. Obesity strongly recommended diet and exercise. DVT Prophylaxis: Lovenox Discharge Planning Discharge Home Pt Condition on Discharge: Good Discharge Disposition: Discharge Home Discharge Time: <= 30 minutes Discharge Instructions DIET: Follow Instructions for: Heart Healthy Diet Activities you can perform: Regular-No Restrictions Deyvi Ramey MD Feb 24, 2017 11:25
--- NOTE | 2017-02-24 12:01 | EKG ---
Date Performed: 02/23/2017 Time Performed: 11:32:32 PTAGE: 56 years EKG: Sinus rhythm MODERATE T-WAVE ABNORMALITY, CONSIDER ANTEROLATERAL ISCHEMIA Since previous tracing, no significant change noted ABNORMAL ECG PREVIOUS TRACING : 02/23/2017 10.01 DOCTOR: Dominic Crow Interpretating Date/Time 02/24/2017 11:59:42
--- NOTE | 2017-02-24 12:02 | EKG ---
Date Performed: 02/23/2017 Time Performed: 10:01:20 PTAGE: 56 years EKG: Sinus rhythm MODERATE T-WAVE ABNORMALITY, CONSIDER ANTEROLATERAL ISCHEMIA Since previous tracing, no significant change noted ABNORMAL ECG PREVIOUS TRACING : 02/23/2017 04.04 DOCTOR: Dominic Crow Interpretating Date/Time 02/24/2017 12:00:02
[2017-02-24 13:29] LABS: HEMOGLOBIN A1a 1.1 %; HEMOGLOBIN A1b 1.8 %; HEMOGLOBIN Ao 84.9 %; HEMOGLOBIN LA1C 1.8 %; HEMOGLOBIN P3 3.7 %
== END 2017-02-24 12:47 | disposition home or self-care (01) ==
LOC: NEPC 22:43 → NEDA 02-23 01:24 → NEPGCP 02-23 02:31 → HCIN 02-23 16:29
PROVIDERS: ADMIT Internal Medicine; ATTEND Internal Medicine
DX: I20.0 Unstable angina (principal); D72.829 Elevated white blood cell count, unspecified; E86.0 Dehydration; I11.9 Hypertensive heart disease without heart failure; E03.9 Hypothyroidism, unspecified; R06.02 Shortness of breath; Z82.49 Family history of ischemic heart disease and other diseases of the circulatory system
CPT/HCPCS: 71010; 78452; 80048; 80053; 80061; 82550; 83036; 83735; 84443; 84484; 85025; 85610; 85730; 93005; 93017; 99285; A9502; G0378; J1650; J2785; J7030

== ENCOUNTER → 2018-02-04 | Outpatient (CLI) | payer OTHER ==
[~2018-02-04] MED LIST changes: +ASPI1TAB56 PO; +LEVO-86 PO; +METO25TA3 PO; -SYNT25TA PO; -ULTR50TA PO
[2018-02-04 10:03] LABS: AUTOMATED NEUTROPHIL # 4.2 TH/MM3 (1.8-7.7); BASOPHIL % 0.4 % (0.0-2.0); EOSINOPHIL # 0.2 TH/MM3 (0-0.4); EOSINOPHIL % 2.7 % (0.0-4.0); HEMATOCRIT 41.1 % (35.0-46.0); HEMOGLOBIN 13.3 GM/DL (11.6-15.3); LYMPH % 32.7 % (9.0-44.0); LYMPHOCYTE # 2.4 TH/MM3 (1.0-4.8); MEAN CELL VOLUME 83.4 FL (80.0-100.0); MEAN CORPUSCULAR HEMOGLOBIN 27.1 PG (27.0-34.0); MEAN CORPUSCULAR HGB CONC 32.5 % (32.0-36.0); MEAN PLATELET VOLUME 8.7 FL (7.0-11.0); MONO % 7.9 % (0.0-8.0); MONOCYTE # 0.6 TH/MM3 (0-0.9); NEUT % 56.3 % (16.0-70.0); PLATELET COUNT 208 TH/MM3 (150-450); RED BLOOD COUNT 4.92 MIL/MM3 (4.00-5.30); RED CELL DISTRIBUTION WIDTH 14.5 % (11.6-17.2); WHITE BLOOD COUNT 7.5 TH/MM3 (4.0-11.0)
[2018-02-04 10:27] LABS: ALBUMIN 3.8 GM/DL (3.4-5.0); AST (GOT) 15 U/L (15-37); BICARBONATE 26.4 MEQ/L (21.0-32.0); BLOOD UREA NITROGEN 14 MG/DL (7-18); CALCIUM 8.9 MG/DL (8.5-10.1); CHLORIDE 104 MEQ/L (98-107); CREATININE 0.89 MG/DL (0.50-1.00); GLOMERULAR FILTRATION RATE 66 ML/MIN (>89); GLUCOSE,FASTING 97 MG/DL (74-99); SODIUM (NA) 139 MEQ/L (136-145)
[2018-02-04 10:38] LABS: ALKALINE PHOSPHATASE 129 U/L (45-117); ALT (GPT) 22 U/L (10-53); CHOLESTEROL 153 MG/DL (120-200); HDL CHOLESTEROL 49.2 MG/DL (40.0-60.0); LDL CHOLESTEROL 86 MG/DL (0-99); TOTAL BILIRUBIN ADULT 0.4 MG/DL (0.2-1.0); TOTAL PROTEIN 7.9 GM/DL (6.4-8.2); TRIGLYCERIDES 89 MG/DL (42-150)
== END ==
LOC: PLAB 07:19
PROVIDERS: ATTEND Internal Medicine Interventional Cardiology
DX: E03.9 Hypothyroidism, unspecified (principal); R07.89 Other chest pain; R94.31 Abnormal electrocardiogram [ECG] [EKG]; Z79.899 Other long term (current) drug therapy
CPT/HCPCS: 36415; 80053; 80061; 84443; 85025